=== PATIENT | female | born 1995 | race Caucasian/White ===

== ENCOUNTER 2017-09-16 22:00 | Inpatient (IN) | payer OTHER ==
[~2017-09-16 22:00] MED LIST: Bupivacaine/Epinephrine 0.25% 30 ML VIAL ONE
[2017-09-17] MEDS ORDERED: Acetaminophen 500 MG TAB PO PRN (00:53)
[2017-09-17] MEDS ORDERED: Misoprostol 200 MCG TAB PR PRN (00:53)
[2017-09-17] MEDS ORDERED: Promethazine HCl 25 MG/ML VIAL IM PRN ×2 (00:53→12:55)
[2017-09-17] MEDS ORDERED: Lidocaine 1% (PF) 30 ML VIAL SC PRN ×2 (00:53)
[2017-09-17] MEDS ORDERED: LR 500 ML/Oxytocin 10 units 500 ML IV SCH ×2 (00:53)
[2017-09-17] MEDS ORDERED: Zolpidem Tartrate 5 MG TAB PO PRN (00:53)
[2017-09-17] MEDS ORDERED: Acetaminophen/Codeine 30-300mg Tablet PO PRN ×2 (00:53→23:45)
[2017-09-17] MEDS ORDERED: LR / Pitocin 40 units/1000 ml 1,000 ML IV PRN ×2 (00:53)
[2017-09-17] MEDS ORDERED: Ibuprofen 800 MG TAB PO PRN (00:53)
[2017-09-17] MEDS ORDERED: Ondansetron HCl/PF 4 MG/2 ML Vial IVP PRN ×3 (00:53→23:45)
[2017-09-17] MEDS ORDERED: HYDROcodone/Acetaminophen 5/325 mg Tablet PO PRN ×2 (00:53→23:45)
[2017-09-17 00:58] VITALS: BMI 37.5
[2017-09-17 01:13] LABS: Hemoglobin 11.9 g/dL (12.0-16.0); Mean Corpuscular HGB CONC 33.8 g/dL (32.0-36.0); Mean Corpuscular Volume 94.5 fl (81.0-99.0); Mean Platelet Volume 7.7 fL (7.4-10.4); Platelet Count 355 thou/uL (130-400); RBC Distribution Width 11.3 % (11.5-14.5); Red Blood Cell (RBC) Count 3.71 mill/uL (4.20-5.40); White Blood Cell (WBC) Count 16.8 thou/uL (4.8-10.8)
[2017-09-17] MEDS ORDERED: Penicillin G Potassium 5 MILL.UNITS in Sodium Chloride 0.9% 100 ML IVPB SCH (01:15)
[2017-09-17] MEDS: Lactated Ringer's 1,000 ML IV SCH ×3 (01:37→19:22)
[2017-09-17] MEDS: Misoprostol 100 MCG TAB VAG SCH ×6 (01:37→23:45)
[2017-09-17 01:52] LABS: HBSAg Index 0.17 S/CO (0-0.99); Hep B Surf Ag Non-Reactive S/CO (NonReactive)
[2017-09-17 05:10] LABS: Syphilis Antibody Nonreactive (Nonreactive); Syphilis Antibody Index 0.04 S/CO (<1.00 Non-Reactive)
[2017-09-17] MEDS ORDERED: Penicillin G Potassium 5 MILL.UNITS VIAL ONE (07:29)
[2017-09-17] MEDS: Penicillin G 2.5 MILL.units 2.5 MILL.UNITS in Premix Bag 1 BAG IVPB SCH ×4 (12:32→20:52)
[2017-09-17] MEDS ORDERED: Fentanyl 4 mcg/Marc 0.1% Cadd 100 ML ONE (12:51)
[2017-09-17] MEDS ORDERED: Eucerin (Mineral Oil/Petrolatum,White) 30 gm Jar TOP PRN (12:55)
[2017-09-17] MEDS ORDERED: ePHEDrine/0.9% NaCl/PF SYRINGE 50 mg/10 ml SLOW IVP PRN (12:55)
[2017-09-17] MEDS ORDERED: Lactated Ringer's 500 ML IV PRN (12:55)
[2017-09-17] MEDS ORDERED: diphenhydrAMINE 50 MG/ML VIAL IVP PRN (12:55)
[2017-09-17] MEDS ORDERED: Naloxone HCl 0.4 mg/ml Vial IVP PRN ×2 (12:55)
[2017-09-17] MEDS ORDERED: Acetaminophen 325 MG TAB PO PRN (12:55)
[2017-09-17] MEDS ORDERED: Communication Order-Pharmacy FS SCH (13:00)
[2017-09-17] MEDS ORDERED: Fentanyl 4mcg/Marcaine 0.1% Cassette 100 ML EPIDURAL SCH (13:00)
[2017-09-17] MEDS ORDERED: Dextrose 5%-Lactated Ringers 1,000 ML IV SCH (17:30)
[2017-09-17] MEDS ORDERED: Bupivacaine 0.25% HCL 30 ML VIAL ONE (20:35)
[2017-09-17] MEDS ORDERED: Methylergonovine 0.2 MG TAB ONE (22:46)
[2017-09-17] MEDS ORDERED: Methylergonovine 0.2 MG/ML VIAL ONE (22:46)
[2017-09-17] MEDS ORDERED: Misoprostol 200 MCG TAB ONE (22:47)
--- NOTE | 2017-09-17 23:29 | OP ---
DATE OF PROCEDURE: 09/17/2017 PREOPERATIVE DIAGNOSIS: Term intrauterine in labor. POSTOPERATIVE DIAGNOSES: 1. Term intrauterine in labor, status post delivery. 2. Hemorrhage secondary to uterine atony. 3. Mild shoulder dystocia. PROCEDURE PERFORMED: Normal spontaneous vaginal delivery. SURGEON: Chuyita Salazar M.D. CHANNEL MARKETING COORDINATOR: No materials assistant. ANESTHETIC: Epidural anesthetic. COMPLICATIONS: No additional complication. PROCEDURE IN DETAIL: Patient complete and pushing and placed in the dorsal lithotomy position. The perineum was prepped and draped. A viable infant was delivered from vertex presentation. It was not ed that there was some mild shoulder dystocia, which was resolved with Harpal and suprapubic press ure. Infant initially breathed and cried spontaneously. Cord was clamped and cut and was colon ded to care of Labor and Delivery team at the [facility]. Cord blood was obtained. The placenta deliver ed spontaneously. Noted the Pitocin had been infusion started just after delivery of the baby. Ther e was minimal bleeding at delivery. There were no lacerations; noted that shortly after delivery of the placenta, the uterus became very boggy and the patient had moderate amount of bright red bleeding . Fundal massage was carried out in addition to IV Pitocin and patient was given IM Methergine as we ll as rectal Cytotec. Hemorrhage, resolved, but recurred shortly after and again resolved with carmen l massage. The patient was tolerating the procedure well. Noted estimated blood loss at 500 mL. Th ere was minimal bleeding and the patient remained in LDR for recovery. Noted the baby is a viable fe male , weight 6 pounds 12 ounces, Apgars 7 at one minute, 9 at five minutes without complicatio ns.
[2017-09-17] MEDS ORDERED: Methylergonovine 0.2 MG/ML VIAL IM SCH (23:30)
[2017-09-17] MEDS ORDERED: diphenhydrAMINE 25 MG CAP PO PRN (23:45)
[2017-09-17] MEDS ORDERED: Preparation H Ointment 28 GM TUBE PR PRN (23:45)
[2017-09-17] MEDS ORDERED: Benzocaine/Menthol 20-0.5% 60 ML CAN TOP PRN (23:45)
[2017-09-17] MEDS ORDERED: LR / Pitocin 40 units/1000 ml 1,000 ML IV SCH (23:45)
[2017-09-17] MEDS ORDERED: Lanolin Ointment 7 GM TUBE TOP PRN (23:45)
[2017-09-17] MEDS ORDERED: Adacel (T-DAP) 0.5 ML VIAL IM ONE (23:45)
[2017-09-17] MEDS ORDERED: Bisacodyl 10 MG SUPP PR PRN (23:45)
[2017-09-17] MEDS ORDERED: Milk Of Magnesia 30 ML UDCUP PO PRN (23:45)
[2017-09-18] MEDS: Ibuprofen 800 MG TAB PO SCH ×3 (03:36→21:07)
[2017-09-18 05:50] LABS: Hemoglobin 10.9 g/dL (12.0-16.0); Mean Corpuscular HGB CONC 33.5 g/dL (32.0-36.0); Mean Corpuscular Hemoglobin 31.5 pg (27.0-31.0); Mean Corpuscular Volume 94.1 fl (81.0-99.0); Mean Platelet Volume 7.9 fL (7.4-10.4); Platelet Count 302 thou/uL (130-400); RBC Distribution Width 11.2 % (11.5-14.5); Red Blood Cell (RBC) Count 3.47 mill/uL (4.20-5.40); White Blood Cell (WBC) Count 22.4 thou/uL (4.8-10.8)
[2017-09-18] MEDS: Docusate Calcium (SURFAK) 240 MG CAP PO SCH ×2 (09:57→21:08)
[2017-09-18] MEDS: Prenatal Vitamin 1 TAB PO SCH (09:57)
[2017-09-18] MEDS: Ferrous Sulfate 325 MG TAB PO SCH ×2 (09:58→16:24)
[2017-09-19] MEDS: Ibuprofen 800 MG TAB PO SCH ×2 (05:35→14:32)
[2017-09-19 08:55] VITALS: BP 110/53; TEMP 98.2
[2017-09-19] MEDS: Docusate Calcium (SURFAK) 240 MG CAP PO SCH (09:28)
[2017-09-19] MEDS: Prenatal Vitamin 1 TAB PO SCH (09:28)
[2017-09-19] MEDS: Ferrous Sulfate 325 MG TAB PO SCH ×2 (09:29→17:24)
== END 2017-09-19 18:40 | disposition home or self-care (01) | DRG 774 ==
LOC: L&D 22:16 → 3SW 09-18 01:48
PROVIDERS: ADMIT Family Medicine; ATTEND Family Medicine
PROC: 10E0XZZ Delivery of Products of Conception, External Approach (ICD-10-PCS; principal; 2017-09-17)
PROC: 3E0P7VZ Introduction of Hormone into Female Reproductive, Via Natural or Artificial Opening (ICD-10-PCS; 2017-09-17)
PROC: 3E033VJ Introduction of Other Hormone into Peripheral Vein, Percutaneous Approach (ICD-10-PCS; 2017-09-17)
PROC: 10907ZC Drainage of Amniotic Fluid, Therapeutic from Products of Conception, Via Natural or Artificial Opening (ICD-10-PCS; 2017-09-17)
DX: O48.0 Post-term pregnancy (principal); O72.1 Other immediate postpartum hemorrhage; Z3A.40 40 weeks gestation of pregnancy; Z37.0 Single live birth; O99.824 Streptococcus B carrier state complicating childbirth
CPT/HCPCS: 36415; 51702; 85027; 86780; 87340; 90715; J0595; J2001; J2210; J2405; J2540; J7050; J7120; S0020

== ENCOUNTER 2021-09-14 17:36 | Emergency (ER) | payer OTHER ==
[2021-09-14] MEDS ORDERED: Ibuprofen 800 MG TAB ONE (21:18)
== END 2021-09-14 22:55 | disposition home or self-care (01) ==
LOC: ERS 17:36
DX: M25.461 Effusion, right knee (principal)